=== PATIENT | male | born 1930 | race Two or more races ===

== ENCOUNTER → 2017-05-21 | Outpatient (CLI) | payer OTHER ==
--- NOTE | 2017-05-21 15:42 | RAD ---
Left lower extremity arterial and venous duplex ultrasound 05/21/2017 at 1426 hours Indication: Left leg pain, left hip surgery 5 weeks ago. Comparison: None available Technique: Sonographic imaging of the left lower extremity for evaluation of arteries and venous structures utilizing grayscale, color Doppler and spectral waveform analysis was performed. Findings: There is an avascular predominantly hypoechoic collection in the left groin area measuring 10.1 cm in length, 4.1 cm in width and 3.5 cm in AP diameter suggestive of a hematoma. There is no connection identified with underlying arteries or veins. The left common femoral vein, left greater saphenous vein, left superficial femoral vein and deep femoral veins, left popliteal vein, peroneal vein, and the left posterior tibial vein demonstrate normal compressibility with normal venous waveform. Normal phasicity is noted. No evidence for venous thrombosis. The left common femoral artery, deep femoral artery, superficial femoral artery, popliteal artery, posterior tibial artery, peroneal artery, anterior tibial artery and dorsalis pedis artery stents with normal waveform without significant atherosclerotic disease. No evidence for arterial stenosis. Impression: 1. No evidence for deep venous thrombosis of the left leg. 2. Normal arterial evaluation of the left leg. 3. There is a 10.1 x 4.1 x 3.5 cm left groin postoperative collection which may represent hematoma.
== END | disposition home or self-care (01) ==
LOC: US 14:06
PROVIDERS: ATTEND Internal Medicine
DX: M79.662 Pain in left lower leg (principal); R20.0 Anesthesia of skin
CPT/HCPCS: 93926; 93971